=== PATIENT | female | born 1960 | race African-American/Black ===

== ENCOUNTER 2016-10-31 09:37 | Emergency (ER) | payer OTHER ==
[~2016-10-31] VITALS: Ht 165.1 cm; Wt 52.0 kg
[2016-10-31] MEDS ORDERED: KETOROLAC 60MG/2ML VIAL IM ONE (11:15)
[2016-10-31 12:03] VITALS: BP 114/71
== END 2016-10-31 13:18 | disposition home or self-care (01) ==
LOC: ER 10:08
DX: S52.001A Unspecified fracture of upper end of right ulna, initial encounter for closed fracture (principal); F17.200 Nicotine dependence, unspecified, uncomplicated; F12.10 Cannabis abuse, uncomplicated; V29.88XA Motorcycle rider (driver) (passenger) injured in other specified transport accidents, initial encounter; Y93.55 Activity, bike riding; Y92.89 Other specified places as the place of occurrence of the external cause; Y99.8 Other external cause status
CPT/HCPCS: 29105; 73030; 73070; 73090; 73110; 96372; 99284; A4565; J1885

== ENCOUNTER 2018-10-22 20:36 | Emergency (ER) | payer OTHER ==
[~2018-10-22] VITALS: Ht 160 cm; Wt 53.0 kg
[2018-10-22 23:13] VITALS: BP 121/76
[2018-10-22] MEDS ORDERED: HYDROCODONE/ACETAMINOPHEN 5/325MG TABLET PO ONE (23:15)
== END 2018-10-23 01:47 | disposition left against medical advice (07) ==
LOC: ER 20:36
DX: L03.115 Cellulitis of right lower limb (principal); F12.10 Cannabis abuse, uncomplicated; F17.200 Nicotine dependence, unspecified, uncomplicated; Z98.890 Other specified postprocedural states; Z96.641 Presence of right artificial hip joint; Z86.2 Personal history of diseases of the blood and blood-forming organs and certain disorders involving the immune mechanism
CPT/HCPCS: 99282

== ENCOUNTER 2018-10-23 07:54 | Emergency (ER) | payer MEDICAID, OTHER ==
[~2018-10-23] VITALS: Ht 165.1 cm; Wt 53.8 kg
[2018-10-23] MEDS ORDERED: SODIUM CHLORIDE 0.9% 1,000 ML IV ONE (10:40)
[2018-10-23] MEDS ORDERED: ONDANSETRON HCL 4MG/2ML INJ IV STA (10:40)
[2018-10-23] MEDS ORDERED: MORPHINE SULFATE 4 MG/ML CPJ (NOT FOR IM USE) IV STA (10:40)
[2018-10-23] MEDS ORDERED: AMPICILLIN SOD/SULBACTAM NA 3 G in SODIUM CHLORIDE 0.9% 100 ML IV SCH (10:45)
[2018-10-23 11:27] LABS: HEMATOCRIT. 21.1 % (36.0-48.0); HEMOGLOBIN. 7.2 g/dL (12.0-16.0); MEAN CORPUSCULAR HEMOGLOBIN 33.8 pg (28.0-32.0); MEAN CORPUSCULAR VOLUME 98.7 fL (81.0-99.0); RED BLOOD CELL COUNT 2.14 mill/uL (4.2-5.4); RED CELL DISTRIBUTION WIDTH 21.7 % (11.6-14.6)
[2018-10-23 11:32] LABS: CHLORIDE 108 mEq/L (98-107)
[2018-10-23 11:54] LABS: NUCLEATED RED BLOOD CELLS 5 /100 WBC
[2018-10-23 11:55] LABS: PLATELET ESTIMATE NORMAL
[2018-10-23] MEDS ORDERED: HYDROCORTISONE 1% CREAM 30GM TOP ONE (13:30)
[2018-10-23 14:15] VITALS: BP 106/73
[2018-10-23 14:51] LABS: CLARITY URINE CLEAR (CLEAR); COLOR URINE YELLOW (YELLOW); KETONES URINE NEGATIVE (NEGATIVE); LEUKOCYTE ESTERASE URINE NEGATIVE (NEGATIVE); NITRITE URINE NEGATIVE (NEGATIVE); OCCULT BLOOD URINE 2+ (NEGATIVE); PH URINE 6.5 (4.5-8.0); PROTEIN URINE 2+ (NEGATIVE); SPECIFIC GRAVITY URINE 1.009 (1.005-1.030)
== END 2018-10-23 14:31 | disposition home or self-care (01) ==
LOC: ER 07:54
DX: S80.821A Blister (nonthermal), right lower leg, initial encounter (principal); D57.00 Hb-SS disease with crisis, unspecified; L03.115 Cellulitis of right lower limb; F12.10 Cannabis abuse, uncomplicated; F17.210 Nicotine dependence, cigarettes, uncomplicated; Z98.890 Other specified postprocedural states; X58.XXXA Exposure to other specified factors, initial encounter; Y93.89 Activity, other specified; Y92.89 Other specified places as the place of occurrence of the external cause; Y99.8 Other external cause status
CPT/HCPCS: 36415; 71045; 80053; 81003; 85025; 85044; 87040; 93005; 96365; 96375; 99284; 99406; J0295; J2270; J2405; J7030; J7050